=== PATIENT | male | born 1970 | race Two or more races ===

== ENCOUNTER → 2024-07-12 | Outpatient (CLI) | payer MEDICAID, SELFPAY ==
--- NOTE | 2024-07-12 13:55 | XR_ITS ---
Examination: Ribs, left, with PA chest, 4 views Technique: Chest PA, RIBS AP, RPO, LPO, 4 views Exam date and time: July 12, 2024 1524 hrs. Indications: Injury to the left chest 4 years ago with persistent wrist pain Findings: Normal heart size No pneumothorax Lungs are clear No rib fractures are depicted Impression: No active disease No rib fractures are depicted
== END | disposition home or self-care (01) ==
DX: R07.89 Other chest pain (principal)
CPT/HCPCS: 71101